=== PATIENT | female | born 1990 | race African-American/Black ===

== ENCOUNTER 2024-04-22 13:21 | Emergency (ER) | payer OTHER, SELFPAY ==
[2024-04-22 13:23] VITALS: BP 156/85
[2024-04-22 13:48] LABS: % Basophils 0.3 % (0-2); % Immature Granulocytes 0.3 % (0-0.5); % Lymphocytes 20.5 % (20.5-51.1); % Monocytes 7.3 % (1.7-9.3); % Neutrophils 68.6 % (42.2-75.2); Absolute Eosinophils 0.4 10^3/uL (0-0.7); Absolute Lymphocytes 2.4 10^3/uL (1.2-3.4); Absolute Monocytes 0.9 10^3/uL (0.1-0.6); Hematocrit 36.1 % (37.0-47.0); Hemoglobin 11.9 g/dL (12.0-16.0); Mean Corpuscular Hgb 24.6 pg (27.0-31.0); Mean Corpuscular Volume 74.7 fL (81.0-99.0); Mean Platelet Volume 9.2 fL (7.4-10.4); Nucleated Red Blood Cells % 0 %; Platelet Count 425 10^3/uL (130-400); Red Blood Cell Count 4.83 10^6/uL (4.20-5.40); Red Cell Dist. Width 15.5 % (11.5-14.5); White Blood Cell Count 11.7 10^3/uL (4.8-10.8)
[2024-04-22 14:04] LABS: ALT (SGPT) 34 U/L (0-35); AST (SGOT) 30 U/L (14-36); Albumin 4.4 g/dl (3.5-5.0); Alkaline Phosphatase 68 U/L (38-126); Blood Urea Nitrogen 9 mg/dl (7-17); Calcium 10.1 mg/dl (8.4-10.2); Carbon Dioxide 22 mmol/L (22-30); Chloride 104 mmol/L (98-107); Glucose 117 mg/dl (70-99); Potassium 3.8 mmol/L (3.5-5.1); Sodium 138 mmol/L (135-145); Total Bilirubin 0.2 mg/dl (0.2-1.3); Total Protein 8.1 g/dl (6.3-8.2); eGFR > 60.00
[2024-04-22 15:54] LABS: Urine Albumin Negative (Neg - Trace); Urine Bilirubin Negative (Negative); Urine Character Clear (Clear); Urine Color Yellow; Urine Glucose Negative (Negative); Urine Ketone Negative (Negative); Urine Leukocyte Trace (Negative); Urine Nitrite Negative (Negative); Urine Occult Blood Negative (Negative); Urine Specific Gravity 1.005 (<1.030); Urine Urobilinogen Negative (Neg - 1+)
[2024-04-22 16:04] LABS: Urine Bacteria Few (Negative)
[2024-04-22 16:05] LABS: Urine Red Blood Cell 0-2 /HPF (0-2); Urine White Cell 0-2 /HPF (0-5)
--- NOTE | 2024-04-22 16:22 | ED.GENMED ---
History of Present Illness
General
Chief Complaint: Problems
Time Seen by Provider: 04/22/24 13:29
History of Present Illness
History of Present Illness:
33-year-old female presents to the emergency department for evaluation of mild left lower pelvic pain developing this morning. She is approximate 5 to 6 weeks gestational age, G1, P0. No vaginal bleeding. No nausea or vomiting
Review of Systems
Review of Systems
Allergies reviewed?: Yes
All Other Systems: ROS reviewed and negative except as documented in HPI and ROS
Phy Exam
Physical Exam
Physical Exam:
GEN: Well appearing, NAD, WDWN
HEENT: Oral mucosa moist, no scleral icterus
Cardiac: Regular rate
Lung: No respiratory distress, no tachypnea
MSK: No gross deformity or injuries
Skin: Good color, no pallor or jaundice, no rashes
Neuro: AO x3, moves all extremities freely
Psych: Calm, cooperative
Course
Orders/Labs/Results
Orders:
Orders
04/22/24 13:35
Type+Screen Urgent
Beta HCG Quantitative Urgent
Is this a screen?: No
Complete Blood Count/With Diff Urgent
Comprehensive Metabolic Panel Urgent
Urine Culture Urgent
CLAUDIA Source: U
Specimen Description:
Date Specimen was Collected: 04/22/24
Time Specimen was Collected: 13:27
Comment: Add on by Priyank Scanlon
04/22/24 13:36
Urinalysis Reflex To Culture Urgent
Date Specimen was Collected: 04/22/24
Time Specimen was Collected: 13:27
Urine Microscopic Reflex Cult Urgent
04/22/24 13:46
US W Transvaginal Urgent
Comment:
Reason For Exam: L pelvic pain, 5 wk GA
04/22/24 14:20
ABO2 Urgent
BBK Wristband Number:
Associate notified that ABO2 has been ordered: ATIFF-ER
Date: 04/22/24
Time: 14:14
Fuel Verification Technician ID: [id number]
04/22/24 16:08
Add On - Microbiology Urgent
Tests Added?: urine culture
Abnormal Lab Results
04/22/24 04/22/24
13:35 13:36
WBC 11.7 H 10^3/uL
(4.8-10.8)
Hgb 11.9 L g/dL
(12.0-16.0)
Hct 36.1 L %
(37.0-47.0)
MCV 74.7 L fL
(81.0-99.0)
MCH 24.6 L pg
(27.0-31.0)
RDW 15.5 H %
(11.5-14.5)
Plt Count 425 H 10^3/uL
(130-400)
Absolute Neuts (auto) 8.0 H 10^3/uL
(1.4-6.5)
Absolute Monos (auto) 0.9 H 10^3/uL
(0.1-0.6)
Glucose 117 H mg/dl
(70-99)
Leukocyte Esterase Rfl Trace A
(Negative)
Urine Bacteria (Reflex) Few A
(Negative)
04/22/24 13:35
04/22/24 13:35
Vital Signs
Initial and Last Documented VS:
Initial Vital Signs
Temp Pulse Resp BP Pulse Ox
98.6 F 83 16 156/85 98
04/22/24 13:23 04/22/24 13:23 04/22/24 13:23 04/22/24 13:23 04/22/24 13:23
Last Documented Vital Signs
Temp Pulse Resp BP Pulse Ox
98.6 F 83 16 156/85 98
04/22/24 13:23 04/22/24 13:23 04/22/24 13:23 04/22/24 13:23 04/22/24 13:23
Information
Weeks gestation: Weeks: (6)
Location: Location: ([facility])
MDM/Problems Addressed
MDM/Problems Addressed:
Ultrasound confirms IUP however heart rate is borderline low. Patient informed of this finding however no strong indications of impending miscarriage at this time. Recommend close OB follow-up for repeat hCG and reevaluation within 1 to 2 weeks
*Critical Care Note
Total Time (30-74mins, 75-104mins- exclusive of procedures): Not Applicable
ED Attending Note
-
Portions of this chart may have been created with voice recognition software.� Occasional wrong word or��sound alike� substitutions may have occurred due to the inherent limitations of voice recognition software.
Discharge Plan
Departure
Patient Disposition: Home (Routine Discharge)
Date of Disposition: 04/22/24
Time of Disposition: 16:22
Patient with high blood pressure during this ER visit?: No
Discharge Problem:
Abdominal pain during in first trimester
Instructions: Threatened Miscarriage (DC)
Referrals:
Carolyn Galeana MD [Family Provider] -
Activity Restrictions/Additional Instructions:
At this time you have an intrauterine however the heart rates were borderline low. Please follow-up with your OB provider within the next 1 to 2 weeks for repeat hCG testing and potential repeat ultrasound to determine further viability
of this
If you develop abdominal cramping and bleeding please contact your OB immediately
Interventions
Interventions:
*Risk Screen - Suicide Last Done: 04/22/24 13:23
*General Assessment Last Done: 04/22/24 16:26
*Neglect/Abuse Screening Last Done: 04/22/24 13:23
*ED COVID-19 Vaccine History Last Done: 04/22/24 16:26
*Nursing Disposition Last Done: 04/22/24 16:26
Discharge Date and Time
Discharge Date/Time: 04/22/24 16:27
Print Language: NIUEAN
== END 2024-04-22 16:27 | disposition home or self-care (01) ==
LOC: EMR 13:21
PROVIDERS: EMERGENCY PHYSICIAN Emergency Medicine; FAMILY PHYSICIAN Emergency Medicine
DX: O26.891 Other specified pregnancy related conditions, first trimester (principal); Z3A.01 Less than 8 weeks gestation of pregnancy; R10.2 Pelvic and perineal pain
CPT/HCPCS: 99284; 76801; 76817; 80053; 81003; 81015; 84702; 85025; 86850; 86900; 86901; 87086

== ENCOUNTER 2024-04-27 05:54 | Emergency (ER) | payer OTHER, SELFPAY ==
[2024-04-27 05:57] VITALS: BP 136/92
[2024-04-27 06:25] LABS: % Basophils 0.4 % (0-2); % Eosinophils 4.6 % (0-6); % Immature Granulocytes 0.4 % (0-0.5); % Lymphocytes 25.8 % (20.5-51.1); % Monocytes 6.4 % (1.7-9.3); % Neutrophils 62.4 % (42.2-75.2); Absolute Basophils 0.1 10^3/uL (0-0.2); Absolute Eosinophils 0.5 10^3/uL (0-0.7); Absolute Lymphocytes 2.9 10^3/uL (1.2-3.4); Absolute Monocytes 0.7 10^3/uL (0.1-0.6); Absolute Neutrophils 7.1 10^3/uL (1.4-6.5); Hematocrit 34.5 % (37.0-47.0); Hemoglobin 11.5 g/dL (12.0-16.0); Mean Corp Hgb Conc. 33.3 g/dL (33.0-37.0); Mean Corpuscular Hgb 25.3 pg (27.0-31.0); Mean Platelet Volume 9.4 fL (7.4-10.4); Nucleated Red Blood Cells % 0 %; Platelet Count 401 10^3/uL (130-400); Red Blood Cell Count 4.54 10^6/uL (4.20-5.40); Red Cell Dist. Width 15.8 % (11.5-14.5); White Blood Cell Count 11.3 10^3/uL (4.8-10.8)
[2024-04-27 06:40] VITALS: BP 123/80
--- NOTE | 2024-04-27 07:25 | ED.GENMED ---
History of Present Illness
General
Chief Complaint: Problems
Time Seen by Provider: 04/27/24 07:14
History of Present Illness
History of Present Illness:
33-year-old female, G1, P0 currently approximately 7 weeks gestational age presents to the emergency department for evaluation of vaginal bleeding. Was seen in this emergency department last week for lower abdominal pain and found to have an IUP
with borderline low heart tones. Has not yet followed up with [facility]. Has any abdominal pain currently. No fevers or chills.
Review of Systems
Review of Systems
Allergies reviewed?: Yes
All Other Systems: ROS reviewed and negative except as documented in HPI and ROS
Phy Exam
Physical Exam
Physical Exam:
GEN: Well appearing, NAD, WDWN
HEENT: Oral mucosa moist, no scleral icterus
Cardiac: Regular rate
Lung: No respiratory distress, no tachypnea
MSK: No gross deformity or injuries
Skin: Good color, no pallor or jaundice, no rashes
Neuro: AO x3, moves all extremities freely
Psych: Calm, cooperative
Course
Orders/Labs/Results
Orders:
Orders
04/27/24 06:04
IV Insert/Care/Rem.- Treatment PRN
Pulse Ox/spot Check [RESP] Urgent
Quantity: 1
Special Instructions: ON ROOM AIR
04/27/24 06:14
Beta HCG Quantitative Urgent
Is this a screen?: No
Comment: known
Complete Blood Count/With Diff Urgent
04/27/24 07:23
US W Transvaginal Urgent
Reason For Exam: vaginal bleeding known IUP
Abnormal Lab Results
04/27/24
06:14
WBC 11.3 H 10^3/uL
(4.8-10.8)
Hgb 11.5 L g/dL
(12.0-16.0)
Hct 34.5 L %
(37.0-47.0)
MCV 76.0 L fL
(81.0-99.0)
MCH 25.3 L pg
(27.0-31.0)
RDW 15.8 H %
(11.5-14.5)
Plt Count 401 H 10^3/uL
(130-400)
Absolute Neuts (auto) 7.1 H 10^3/uL
(1.4-6.5)
Absolute Monos (auto) 0.7 H 10^3/uL
(0.1-0.6)
04/27/24 06:14
Vital Signs
Initial and Last Documented VS:
Initial Vital Signs
Temp Pulse Resp BP Pulse Ox
98.1 F 84 22 136/92 98
04/27/24 05:57 04/27/24 05:57 04/27/24 05:57 04/27/24 05:57 04/27/24 05:57
Last Documented Vital Signs
Temp Pulse Resp BP Pulse Ox
97.8 F 78 18 128/64 99
04/27/24 09:00 04/27/24 11:00 04/27/24 11:00 04/27/24 11:00 04/27/24 11:00
Information
Weeks gestation: Weeks: (7)
Location: Location: ([facility])
MDM/Problems Addressed
MDM/Problems Addressed:
Repeat ultrasound today shows a subchorionic hemorrhage. Reviewed case with [facility] who agrees with plan for strict pelvic rest and outpatient [facility] follow-up
*Critical Care Note
Total Time (30-74mins, 75-104mins- exclusive of procedures): Not Applicable
ED Attending Note
-
Portions of this chart may have been created with voice recognition software.� Occasional wrong word or��sound alike� substitutions may have occurred due to the inherent limitations of voice recognition software.
Discharge Plan
Departure
Patient Disposition: Home (Routine Discharge)
Date of Disposition: 04/27/24
Time of Disposition: 11:41
Patient with high blood pressure during this ER visit?: No
Discharge Problem:
Subchorionic hemorrhage in first trimester
Instructions: Subchorionic Bleeding
Referrals:
Carolyn Galeana MD [Family Provider] -
Activity Restrictions/Additional Instructions:
Strict pelvic rest: No heavy lifting, no vigorous exercise, no sexual intercourse
Bleeding should gradually improve and become brownish in color
If bleeding increases, call your OBGYN
Interventions
Interventions:
*Risk Screen - Suicide Last Done: 04/27/24 05:57
*General Assessment Last Done: 04/27/24 06:15
*Neglect/Abuse Screening Last Done: 04/27/24 05:57
ED- Fall Risk Assessment Last Done: 04/27/24 06:15
*ED COVID-19 Vaccine History Last Done: 04/27/24 06:15
*Nursing Disposition Last Done: 04/27/24 11:49
ED-Female Genitourinary Assessment Last Done: 04/27/24 06:16
Discharge Date and Time
Discharge Date/Time: 04/27/24 11:50
Print Language: CAMEROONIAN
[2024-04-27 09:00] VITALS: BP 120/61
[2024-04-27 11:00] VITALS: BP 128/64
== END 2024-04-27 11:50 | disposition home or self-care (01) ==
LOC: EMR 05:54
PROVIDERS: EMERGENCY PHYSICIAN Emergency Medicine; FAMILY PHYSICIAN Emergency Medicine
DX: O20.8 Other hemorrhage in early pregnancy (principal); Z3A.01 Less than 8 weeks gestation of pregnancy
CPT/HCPCS: 99284; 76801; 76817; 84702; 85025